=== PATIENT | female | born 1980 | race Caucasian/White ===

== ENCOUNTER 2017-07-25 17:34 | Emergency (ER) | payer SELFPAY ==
[~2017-07-25] VITALS: Ht 167.6 cm; Wt 122.5 kg
[~2017-07-25 17:34] MED LIST: AC500T PO; ACHYD1T PO; CEPH500C PO; DCS100C PO; HYDR28CR10 TP; IBP800T PO; PREN1TAB14 PO
--- OUTSIDE RECORDS SUMMARY | 2017-07-25 17:40 | XMS REPORT ---
Author Author JING QUINN [facility] Address [address] [place] [address] Care Team Providers Care Brand Designer Name Role Phone JING QUINN Unavailable PROBLEMS Type Condition ICD9-CM Code KFY57-ES Code Onset Dates Condition Status SNOMED Code Problem Tubal ligation sterilization status V26.51 Active 866324244 Problem Screening for malignant neoplasm of the cervix V76.2 Active 898158363 Problem Obesity, unspecified 278.00 Active 943097459 Problem Urinary tract infection, site not specified 599.0 Active 52712360 Problem Unspecified high-risk V23.9 Active 93707720 Problem Routine follow-up V24.2 Active 021228413 Problem Tobacco use disorder complicating , childbirth, or the puerperium, unspecified as to episode of care or not applicable 649.00 Active Problem Other malaise and fatigue 780.79 Active 655117457 ALLERGIES Substance Reaction Event Type Date Status N.K.D.A. Unknown Non Drug Allergy Oct, Unknown SOCIAL HISTORY No smoking Hx information available PLAN OF CARE VITAL SIGNS Height 68 in 2016-11-09 Weight 287.2 lbs 2016-11-09 Temperature 97.3 degrees Fahrenheit 2016-11-09 Heart Rate 76 bpm 2016-11-09 Respiratory Rate 18 2016-11-09 BMI 43.66 kg/m2 2016-11-09 Blood pressure systolic 128 mmHg 2016-11-09 Blood pressure diastolic 92 mmHg 2016-11-09 MEDICATIONS Medication Instructions Dosage Frequency Start Date End Date Duration Status Zofran 8 MG Orally 3 times a day 1 tablet 8h Oct, Active RESULTS No Results PROCEDURES Procedure Date Ordered Related Diagnosis Body Site Office Visit, Est Pt., Level 3 Nov 09, 2016 IMMUNIZATIONS No Known Immunizations
--- OUTSIDE RECORDS SUMMARY | 2017-07-25 17:40 | XMS REPORT ---
Author JING Marquez Organization [employer] Address Unknown Phone Unavailable Care Team Providers Care Machine Stoppage Frequency Checker Name Role Phone JING QUINN CP Unavailable Allergies No Known Allergies Problems Problem Type Condition Code Onset Dates Condition Status Problem Screening for malignant neoplasm of the cervix V76.2 Active Problem Tubal ligation sterilization status V26.51 Active Problem Routine follow-up V24.2 Active Problem Unspecified high-risk V23.9 Active Problem Tobacco use disorder complicating , childbirth, or the puerperium, unspecified as to episode of care or not applicable 649.00 Active Problem Urinary tract infection, site not specified 599.0 Active Problem Other malaise and fatigue 780.79 Active Problem Obesity, unspecified 278.00 Active Medications No Known Medications Results No Known Results Summary Purpose [employer] Submission
--- OUTSIDE RECORDS SUMMARY | 2017-07-25 17:40 | XMS REPORT ---
Author JING Marquez Organization [employer] Address Unknown Phone Unavailable Care Team Providers Care Construction Administrator Name Role Phone JING QUINN CP Unavailable [...] Active Problem Obesity, unspecified 278.00 Active Medications Medication Code System Code Instructions Start Date End Date Status Dosage Fluoxetine HCl [facility] [address]-11 20 mg Orally Once a day--MUST KEEP APPT FOR FURTHER REFILLS Jun 06, 2016 1 capsule in the morning Results No Known Results Summary Purpose [employer] Submission
--- OUTSIDE RECORDS SUMMARY | 2017-07-25 17:40 | XMS REPORT ---
Author Author JING QUINN [facility] Address [address] [place] [address] Care Team Providers Care Blower Operator Name Role Phone JING QUINN Unavailable PROBLEMS Type Condition ICD9-CM Code VBA48-YQ Code Onset Dates Condition Status SNOMED Code Assessment Mood disorder F39 May, Active 31782835 Problem Urinary tract infection, site not specified 599.0 Active 46792144 Problem Screening for malignant neoplasm of the cervix V76.2 Active 340606207 Problem Unspecified high-risk V23.9 Active 10570802 Problem Tubal ligation sterilization status V26.51 Active Problem Obesity, unspecified 278.00 Active 504263838 Problem Tobacco use disorder complicating , childbirth, or the puerperium, unspecified as to episode of care or not applicable 649.00 Active Problem Routine follow-up V24.2 Active 012671359 Problem Other malaise and fatigue 780.79 Active 220377399 ALLERGIES Substance Reaction Event Type Date Status N.K.D.A. Unknown Non Drug Allergy May, Unknown SOCIAL HISTORY No smoking Hx information available PLAN OF CARE VITAL SIGNS Height 68 in 2016-06-06 Weight 295.4 lbs 2016-06-06 Heart Rate 68 bpm 2016-06-06 Respiratory Rate 18 2016-06-06 BMI 44.91 kg/m2 2016-06-06 Blood pressure systolic 122 mmHg 2016-06-06 Blood pressure diastolic 88 mmHg 2016-06-06 MEDICATIONS Medication Instructions Dosage Frequency Start Date End Date Duration Status Fluoxetine HCl 20 mg Orally Once a day 1 capsule in the morning 24h May 30 day(s) Active RESULTS No Results PROCEDURES Procedure Date Ordered Related Diagnosis Body Site Office Visit, Est Pt., Level 3 Jun 06, 2016 IMMUNIZATIONS No Known Immunizations
--- OUTSIDE RECORDS SUMMARY | 2017-07-25 17:40 | XMS REPORT ---
Author JING Marquez Organization [employer] Address Unknown Phone Unavailable Care Team Providers Care Old Coin Dealer Name Role Phone JING QUINN CP Unavailable [...]
--- OUTSIDE RECORDS SUMMARY | 2017-07-25 17:41 | XMS REPORT | Continuity of Care Document ---
Author Author [facility] Address Unknown Phone Unavailable Allergies Medications Problems Date Dx Coded Attending Type Code Diagnosis Diagnosed By 05/19/2008 ANDREA MENDOZA DO 300.4 MO DYSTHYMIC DIS 05/19/2008 ANDREA MENDOZA DO 300.4 MO DYSTHYMIC DIS 05/19/2008 MADL BAGGAGE AGENT SUPERVISOR, JIM L 300.4 MO DYSTHYMIC DIS 05/19/2008 MADL BAGGAGE AGENT SUPERVISOR, JIM L 300.4 MO DYSTHYMIC DIS 11/05/2008 ANDREA MENDOZA DO V22.1 Normal Routine History And Physical - Labor And Delivery 11/05/2008 ANDREA MENDOZA DO V22.1 Normal Routine History And Physical - Labor And Delivery 11/05/2008 MADL BAGGAGE AGENT SUPERVISOR, JIM L V22.1 Normal Routine History And Physical - Labor And Delivery 11/05/2008 MADL BAGGAGE AGENT SUPERVISOR, JIM L V22.1 Normal Routine History And Physical - Labor And Delivery 12/04/2008 ANDREA MENDOZA DO 654.20 PREVIOUS 12/04/2008 ANDREA MENDOZA DO V72.31 Party Host Exam, Routine 12/04/2008 ANDREA MENDOZA DO V74.5 Std Screen 12/04/2008 ANDREA MENDOZA DO K 654.20 PREVIOUS 12/04/2008 ANDREA MENDOZA DO K V72.31 Party Host Exam, Routine 12/04/2008 ANDREA MENDOZA DO K V74.5 Std Screen 12/04/2008 MADL BAGGAGE AGENT SUPERVISOR, JIM L 654.20 PREVIOUS 12/04/2008 MADL BAGGAGE AGENT SUPERVISOR, JIM L V72.31 Party Host Exam, Routine 12/04/2008 MADL BAGGAGE AGENT SUPERVISOR, JIM L V74.5 Std Screen 12/04/2008 MADL BAGGAGE AGENT SUPERVISOR, JIM L 654.20 PREVIOUS 12/04/2008 MADL BAGGAGE AGENT SUPERVISOR, JIM L V72.31 Party Host Exam, Routine 12/04/2008 LB REDD APRNA L V74.5 Std Screen 01/01/2009 VERNON MENDOZA DOA K V28.8 SCREEN TETRA SCREEN 01/01/2009 MENDOZA DO ANDREA K V28.8 SCREEN TETRA SCREEN 01/01/2009 LB REDD APRNA L V28.8 SCREEN TETRA SCREEN 01/01/2009 MADL LB LAZCANOA L V28.8 SCREEN TETRA SCREEN 02/14/2009 KELLY ROSARIO ANDREA K 461.1 Sinusitis Acute Frontal 02/14/2009 MENDOZA DO ANDREA K 461.1 Sinusitis Acute Frontal 02/14/2009 MUNAL YUSUF LAZCANONYA L 461.1 Sinusitis Acute Frontal 02/14/2009 YUSUF REDD APRNNYA L 461.1 Sinusitis Acute Frontal 02/24/2009 VERNON MENDOZA DOA K 790.29 ABNORMAL GLUCOSE 02/24/2009 VERNON MENDOZA DOA K 790.29 ABNORMAL GLUCOSE 02/24/2009 MUNAL YUSUF LAZCANONYA L 790.29 ABNORMAL GLUCOSE 02/24/2009 MUNAL JALEESA, JIM L 790.29 ABNORMAL GLUCOSE 03/27/2009 VERNON MENDOZA DOA K 649.60 UTERINE SIZE DATE DISCREPANCY - LGA 03/27/2009 VERNON MENDOZA DOA K 649.60 Uterine Size Date Discrepancy - Lga 03/27/2009 MUNAL BAGGAGE AGENT SUPERVISOR, JIM L 649.60 Uterine Size Date Discrepancy - Lga 03/27/2009 MUNAL YUSUF LAZCANONYA L 649.60 Uterine Size Date Discrepancy - Lga 12/07/2009 VERNON MENDOZA DOA K 296.9 MOOD DIS NOS 12/07/2009 MENDOZA DO ANDREA K 296.9 MOOD DIS NOS 12/07/2009 MADL BAGGAGE AGENT SUPERVISORRENALDO PabloJIM L 296.9 MOOD DIS NOS 12/07/2009 MADL BAGGAGE AGENT SUPERVISORRENALDO PabloJIM L 296.9 MOOD DIS NOS 09/21/2010 VERNON MENDOZA DOA K 296.90 MOOD DISORDER 09/21/2010 VERNON MENDOZA DOA K 780.50 SLEEP DISTURBANCE, UNSPECIFIED 09/21/2010 VERNON MENDOZA DOA K 296.90 MOOD DISORDER 09/21/2010 MENDOZA DO, ANDREA K 780.50 SLEEP DISTURBANCE, UNSPECIFIED 09/21/2010 MADL BAGGAGE AGENT SUPERVISOR, JIM L 296.90 MOOD DISORDER 09/21/2010 MADL BAGGAGE AGENT SUPERVISOR, JIM L 780.50 SLEEP DISTURBANCE, UNSPECIFIED 09/21/2010 MADL BAGGAGE AGENT SUPERVISOR, JIM L 296.90 MOOD DISORDER 09/21/2010 MADL BAGGAGE AGENT SUPERVISOR, JIM L 780.50 SLEEP DISTURBANCE, UNSPECIFIED 07/28/2011 MENDOZA DO, ANDREA K 780.79 Malaise And Fatigue 07/28/2011 MENDOZA DO, ANDREA K 799.22 Irritibility 07/28/2011 MENDOZA DO, ANDREA K V04.81 FLU DX (3 YRS AND ABOVE, IM) 07/28/2011 MENDOZA DO, ANDREA K 780.79 Malaise And Fatigue 07/28/2011 MENDOZA DO, ANDREA K 799.22 Irritibility 07/28/2011 MENDOZA DO, ANDREA K V04.81 Flu Dx (3 Yrs And Above, Im) 07/28/2011 MADL BAGGAGE AGENT SUPERVISOR, JIM L 780.79 Malaise And Fatigue 07/28/2011 MADL BAGGAGE AGENT SUPERVISOR, JIM L 799.22 Irritibility 07/28/2011 MADL BAGGAGE AGENT SUPERVISOR, JIM L V04.81 Flu Dx (3 Yrs And Above, Im) 07/28/2011 MADL BAGGAGE AGENT SUPERVISOR, JIM L 780.79 Malaise And Fatigue 07/28/2011 MADL BAGGAGE AGENT SUPERVISOR, JIM L 799.22 Irritibility 07/28/2011 MADL BAGGAGE AGENT SUPERVISOR, JIM L V04.81 Flu Dx (3 Yrs And Above, Im) 03/13/2012 MENDOZA DO, ANDREA K 278.00 OBESITY 03/13/2012 MENDOZA DO, ANDREA K 649.00 COMPL OF - TOBACCO USE 03/13/2012 MENDOZA DO, ANDREA K 278.00 OBESITY 03/13/2012 MENDOZA DO, ANDREA K 649.00 Compl Of - Tobacco Use 03/13/2012 MADL BAGGAGE AGENT SUPERVISOR, JIM L 278.00 OBESITY 03/13/2012 MADL BAGGAGE AGENT SUPERVISOR, JIM L 649.00 Compl Of - Tobacco Use 03/13/2012 MADL BAGGAGE AGENT SUPERVISOR, JIM L 278.00 OBESITY 03/13/2012 MUNAL BAGGAGE AGENT SUPERVISOR, JIM L 649.00 Compl Of - Tobacco Use 03/28/2012 ANDREA MENDOZA DO K V76.2 Cervical Cancer Screening (pap Smear) 03/28/2012 ANDREA MENDOZA DO K V76.2 Cervical Cancer Screening (pap Smear) 03/28/2012 MUNAL BAGGAGE AGENT SUPERVISOR, JIM L V76.2 Cervical Cancer Screening (pap Smear) 03/28/2012 MADL BAGGAGE AGENT SUPERVISOR, JIM L V76.2 Cervical Cancer Screening (pap Smear) 05/31/2012 ANDREA MENDOZA DO K V23.9 , HIGH-RISK (UNSPEC) 05/31/2012 ANDREA MENDOZA DO K V23.9 , High-risk (unspec) 05/31/2012 MUNAL BAGGAGE AGENT SUPERVISORLB PabloA L V23.9 , High-risk (unspec) 05/31/2012 MUNAL BAGGAGE AGENT SUPERVISORLB PabloA L V23.9 , High-risk (unspec) 07/26/2012 ANDREA MENDOZA DO K 599.0 Urinary Tract Infection 07/26/2012 ANDREA MENDOZA DO K 599.0 Urinary Tract Infection 07/26/2012 MUNAL BAGGAGE AGENT SUPERVISORJIM Pablo L 599.0 Urinary Tract Infection 07/26/2012 MUNAL BAGGAGE AGENT SUPERVISOR, JIM L 599.0 Urinary Tract Infection 11/05/2012 ANDREA MENDOZA DO K V24.2 F/U, ROUTINE 11/05/2012 ANDREA MENDOZA DO K V26.51 TUBAL LIGATION STATUS 11/05/2012 MADL BAGGAGE AGENT SUPERVISOR, IJM L V24.2 F/U, ROUTINE 11/05/2012 MADL BAGGAGE AGENT SUPERVISOR, JIM L V26.51 TUBAL LIGATION STATUS 11/05/2012 MADL BAGGAGE AGENT SUPERVISOR, JIM L V24.2 F/U, ROUTINE 11/05/2012 MUNAL BAGGAGE AGENT SUPERVISOR, JIM L V26.51 TUBAL LIGATION STATUS 07/10/2014 MUNAL BAGGAGE AGENT SUPERVISORLB PabloA L 780.79 OTHER MALAISE AND FATIGUE 07/10/2014 MUNAL BAGGAGE AGENT SUPERVISORJIM Pablo L 780.79 OTHER MALAISE AND FATIGUE Procedures Code [place] [address] UA OB DIP 2011 04308 CULTURE GROUP B STREP VAG 09/12/2012 85008 UA OB DIP 2011 03350 ROUTINE VENIPUNCTURE 08/26/2014 48994 CBC 08/26/2014 [id number] GFR CALC (RESULT ONLY) 08/26/2014 47419 CMP 08/26/2014 58862 LIPID PANEL 08/26 32365 TSH 08/26/2014 Results Encounters ACCT No. Visit Date/Time Discharge Status Pt. Type Provider Facility Loc./Unit Complaint [id number] 08/26/2014 08:52:00 08/26/2014 23: 59:59 CLS Outpatient JIM REDD APRN [id number] 07/10/2014 08:14:00 07/10/2014 23: 59:59 CLS Outpatient JIM REDD APRN [id number] 11/05/2012 14:39:00 11/05/2012 23: 59:59 CLS Outpatient ANDREA MENDOZA DO [id number] 09/05/2012 09:38:00 09/05/2012 23:59 :59 CLS Outpatient ANDREA MENDOZA DO
--- OUTSIDE RECORDS SUMMARY | 2017-07-25 17:41 | XMS REPORT ---
Author Author JING QUINN [facility] Address [address] [place] [address] Care Team Providers Care Job Setter Honing Name Role Phone JING QUINN Unavailable PROBLEMS Type Condition ICD9-CM Code XBX85-WW Code Onset Dates Condition Status SNOMED Code Assessment Fatigue, unspecified type R53.83 Jun, Active 64725345 Problem Urinary tract infection, site not specified 599.0 Active 12452222 Problem Screening for malignant neoplasm of the cervix V76.2 Active 295508882 Assessment Mood disorder F39 Jun, Active 96301654 Problem Unspecified high-risk V23.9 Active 26904910 Problem Tubal ligation sterilization status V26.51 Active Problem Obesity, unspecified 278.00 Active 141665283 Problem Tobacco use disorder complicating , childbirth, or the puerperium, unspecified as to episode of care or not applicable 649.00 Active Problem Routine follow-up V24.2 Active 297177775 Problem Other malaise and fatigue 780.79 Active 335164106 ALLERGIES Substance Reaction Event Type Date Status N.K.D.A. Unknown Non Drug Allergy Jun, Unknown SOCIAL HISTORY No smoking Hx information available PLAN OF CARE VITAL SIGNS Height 68 in 2016-07-25 Weight 290.3 lbs 2016-07-25 Heart Rate 80 bpm 2016-07-25 Respiratory Rate 16 2016-07-25 BMI 44.14 kg/m2 2016-07-25 Blood pressure systolic 124 mmHg 2016-07-25 Blood pressure diastolic 80 mmHg 2016-07-25 MEDICATIONS Medication Instructions Dosage Frequency Start Date End Date Duration Status Fluoxetine HCl 40 MG Orally Once a day 1 capsule in the morning 24h May Active RESULTS Name Result Date Reference Range TSH 2016-07-25 TSH 2.010 0.450-4.500 CMP 2016-07-25 Glucose, Serum 96 65-99 BUN 12 6-20 Creatinine, Serum 0.79 0.57-1.00 eGFR If NonAfricn Am 99 >59 eGFR If Africn Am 114 >59 BUN/Creatinine Ratio 15 8-20 Sodium, Serum 141 134-144 Potassium, Serum 3.8 3.5-5.2 Chloride, Serum 101 97-108 Carbon Dioxide, Total 25 18-29 Calcium, Serum 9.1 8.7-10.2 Protein, Total, Serum 6.9 6.0-8.5 Albumin, Serum 4.3 3.5-5.5 Globulin, Total 2.6 1.5-4.5 A/G Ratio 1.7 1.1-2.5 Bilirubin, Total 0.2 0.0-1.2 Alkaline Phosphatase, S 62 39-117 AST (SGOT) 20 0-40 ALT (SGPT) 16 0-32 CBC 2016-07-25 WBC 12.0 3.4-10.8 RBC 4.13 3.77-5.28 Hemoglobin 11.7 11.1-15.9 Hematocrit 35.3 34.0-46.6 MCV 86 79-97 MCH 28.3 26.6-33.0 MCHC 33.1 31.5-35.7 RDW 14.1 12.3-15.4 Platelets 401 150-379 Neutrophils 54 Lymphs 37 Monocytes 8 Eos 1 Basos 0 Neutrophils (Absolute) 6.4 1.4-7.0 Lymphs (Absolute) 4.5 0.7-3.1 Monocytes(Absolute) 0.9 0.1-0.9 Eos (Absolute) 0.1 0.0-0.4 Baso (Absolute) 0.0 0.0-0.2 Immature Granulocytes 0 Immature Grans (Abs) 0.0 0.0-0.1 PROCEDURES Procedure Date Ordered Related Diagnosis Body Site Office Visit, Est Pt., Level 3 Jul 25, 2016 ASSAY THYROID STIM HORMONE Jul 25, 2016 COMPREHEN METABOLIC PANEL Jul 25, 2016 COMPLETE CBC W/AUTO DIFF WBC Jul 25, 2016 VENIPUNCT, ROUTINE* Jul 25, 2016 IMMUNIZATIONS No Known Immunizations
[2017-07-25] MEDS ORDERED: AMOX500C2 PO (18:53)
[2017-07-25] MEDS ORDERED: HYDR-757 PO (18:53)
--- NOTE | 2017-07-25 18:54 | ED EENT ---
History of Present Illness General Chief Complaint: Facial Problems Stated Complaint: FEVER,FACE SWELLING Source: patient Exam Limitations: no limitations History of Present Illness Time seen by provider: 18:49 Initial Comments To ER with reports of 1.5 days of left upper dental pain,, subjective swelling, subjective fever. She denies any injuries or trauma to the mouth Timing/Duration: yesterday Severity: moderate Associated Symptoms: tooth pain Allergies and Home Medications Allergies Coded Allergies: No Known Drug Allergies (Verified Allergy, Unknown, 02/03/09) Home Medications Docusate Sodium 100 Mg Capsule, 100 MG PO BID, (Reported) Hydrocodone Bit/Acetaminophen 1 Tab Tablet, 1-2 TAB PO Q 3HRS PRN, (Reported) Hydrocortisone/Oatmeal/Aloe/E 28.4 Gm Cream.gm., TP BID, (Reported) Apply sparingly to affected area twice a day Ibuprofen 800 Mg Tab, 800 MG PO Q6H PRN, (Reported) Vits W-Ca,Fe,Fa(<1MG) 1 Each Tablet, 1 EACH PO DAILY, (Reported) Review of Systems Constitutional: see HPI Eyes: No Symptoms Reported Ears: No Symptoms Reported Nose: no symptoms reported Mouth: see HPI, pain, swelling Throat: no symptoms reported Respiratory: no symptoms reported Cardiovascular: no symptoms reported Musculoskeletal: no symptoms reported Past Wpsxopl-Csjurm-Aejflj Hx Patient Social History Recent Foreign Travel: No Contact w/Someone Who Travel: No Immunizations Up To Date Date of Influenza Vaccine: Sep 07, 2012 Reproductive System Hx Reproductive Disorders: No Physical Exam General Appearance: WD/WN, no apparent distress Eyes: bilateral eye normal inspection, bilateral eye PERRL, bilateral eye EOMI Ears: bilateral ear auricle normal, bilateral ear canal normal, bilateral ear TM normal Mouth/Throat: dental tenderness (surrounding the left upper molar. However, there is no fluctuance to suggest a drainable abscess.) Neurologic/Psychiatric: alert, normal mood/affect, oriented x 3 Skin: normal color, warm/dry Departure Impression Impression: Primary Impression: Pain, dental Disposition: 01 HOME, SELF-CARE Condition: Stable Departure-Patient Inst. Decision time for Depature: 18:52 Referrals: ANDREA MENDOZA DO (PCP) Primary Care Physician JING QUINN (Family) Primary Care Physician JHOAN STERLING DDS Patient Instructions: NO INSTRUCTIONS GIVEN Add. Discharge Instructions: 1. Take antibiotics and pain medication as directed 2. Call Dr. Sterling tomorrow to make an appointment to be seen 3. All discharge instructions reviewed with patient and/or family. Voiced understanding. Scripts Hydrocodone/Acetaminophen ([place] 5-325 Tablet) 1 Each Tablet 1 EACH PO Q4H Y for PAIN-MILD TO MODERATE, #10 TAB Do not fill unless amoxicillin is also filled Prov: MYLES CONTRERAS APRN 07/25/17 Amoxicillin (Amoxicillin) 500 Mg Capsule 500 MG PO TID, #21 CAP Prov: MYLES CONTRERAS APRN 07/25/17 Work/School Note: Work Release Form Date Seen in the Emergency Department: Jul 25, 2017 Return to Work: Jul 26, 2017 MYLES CONTRERAS APRN Jul 25, 2017 18:53
[2017-07-25 19:00] VITALS: BP 120/70
== END 2017-07-25 19:00 | disposition home or self-care (01) ==
LOC: EDUNIT# 17:34 → ER 17:37
DX: K08.89 Other specified disorders of teeth and supporting structures (principal)
CPT/HCPCS: 99283

== ENCOUNTER 2018-07-01 13:49 | Emergency (ER) | payer SELFPAY ==
[~2018-07-01] VITALS: Ht 175.3 cm; Wt 133.4 kg
[~2018-07-01 13:49] MED LIST changes: +AMOX500C2 PO; +HYDR-4226 PO
--- OUTSIDE RECORDS SUMMARY | 2018-07-01 14:16 | XMS REPORT ---
Author Author JING QUINN Organization [facility] Address [address] [place] [address] Care Team Providers Care Final Inspector Movement Assembly Name Role Phone JING QUINN Unavailable PROBLEMS Type Condition ICD9-CM Code PEF35-BA Code Onset Dates Condition Status SNOMED Code Problem Morbid obesity due to excess calories E66.01 Active 648561399 Problem Chronic fatigue R53.82 Active [id number] ALLERGIES No Known Allergies ENCOUNTERS Encounter Location Date Diagnosis [facility] [id number] [place] [address] Jan, Morbid obesity due to excess calories E66.01 ; Chronic fatigue R53.82 ; Family history of diabetes mellitus Z83.3 and Family history of hypothyroidism Z83.49 [facility] [id number] [place] [address] Oct, Viral gastroenteritis A08.4 [facility] [address] [address] Jun, [facility] [id number] [place] [address] Jun, Fatigue, unspecified type R53.83 and Mood disorder F39 [facility] [id number] [place] [address] May, [facility] [id number] [place] [address] May, [facility] [address] [address] May, Mood disorder F39 [facility] [id number] [place] [address] Jan, [facility] [id number] [address] 13 Jan, 2015 [facility] [address] [id number] [place] [address] Jul, [facility] [place] [facility] [address] [id number] [place] [address] Jul, [facility] [place] [facility] [address] [id number] [place] [address] Jul, [facility] [place] [facility] [address] [id number] [place] [address] Jul, [facility] [place] [facility] [address] [id number] [place] [address] Jun, [facility] [place] [facility] [address] [id number] [place] [address] Jun, [facility] [address] [id number] [place] [address] Oct, [facility] [address] [id number] [place] [address] Oct, [facility] [place] [facility] [address] [id number] [place] [address] 27 Aug, 2012 [facility] [address] [id number] [place] [address] Aug, [facility] [place] [facility] [address] [id number] [place] [address] 21 Aug, 2012 [facility] [place] [facility] [address] [id number] [place] [address] 15 Aug, 2012 [facility] [place] [facility] [address] [id number] [place] [address]- [address] 15 Aug, 2012 [facility] [place] [facility] [address] [id number] [place] [address]- [address] 14 Aug, 2012 [facility] [place] [facility] [address] [id number] [place] [address] 13 Aug, 2012 [facility] [place] [facility] [address] [id number] [place] [address] Aug, [facility] [place] [facility] [address] [id number] [place] [address] Aug, [facility] [place] [facility] [address] [id number] [place] [address] Aug, [facility] [place] [facility] [address] [id number] [place] [address] Aug, [facility] [place] [facility] [address] [id number] [place] [address] Jul, [facility] [place] [facility] [address] [id number] [place] [address] Jul, [facility] [place] [facility] [address] [id number] [place] [address] 4099 Jul, [facility] [place] [facility] [address] [id number] [place] [address] Jul, [facility] [place] [facility] [address] [id number] [place] [address] Jul, [facility] [place] [facility] [address] [id number] [place] [address] 88[address] Jul, [facility] [place] [facility] [address] [facility] [id number] [place] [address] Jul, [facility] [place] [facility] [address] [id number], [place] [address] Jun, [facility] [place] [facility] [address] [id number] [place] [address] 24 Jun, 2012 [facility] [place] [facility] [address] [id number], [place] [address] Jun, [facility] [place] [facility] [address] [id number], [place] [address] May, [facility] [place] [facility] [address] [id number], [place] [address] May, [facility] [address] [place] [address] Apr, [facility] [address], [place] [address] Mar, [facility] [address], [place] [address] Mar, [facility] [address], [place] [address] February, [facility] [address], [place] [address] February, [facility] [address], [place] [address] February, [facility] [address], [place] [address] February, [facility] [address], [place] [address] Aug, [facility] [address], [place] [address] Apr, [facility] [address], [place] [address] Mar, [facility] [id number], [place] [address] February, [facility] [id number], [place] [address] Jan, IMMUNIZATIONS No Known Immunizations SOCIAL HISTORY Never Assessed REASON FOR VISIT Depression----Bret PLAN OF CARE Activity Details Follow Up 4 Weeks Reason:obesity VITAL SIGNS Height 68 in 2018-02-05 Weight 304 lbs 2018-02-05 Temperature 98.1 degrees Fahrenheit 2018-02-05 Heart Rate 100 bpm 2018-02-05 Respiratory Rate 20 2018-02-05 BMI 46.22 kg/m2 2018-02-05 Blood pressure systolic 132 mmHg 2018-02-05 Blood pressure diastolic 70 mmHg 2018-02-05 MEDICATIONS Medication Instructions Dosage Frequency Start Date End Date Duration Status Phentermine HCl 15 mg Orally Once a day 1 capsule 24h Jan, Active Fluoxetine HCl 40 mg Orally Once a day 1 capsule in the morning 24h May Active RESULTS No Results PROCEDURES No Known procedures INSTRUCTIONS MEDICATIONS ADMINISTERED No Known Medications MEDICAL (GENERAL) HISTORY Type Description Date Medical History Depression, unspecified depression type Surgical History section x 4 Surgical History tonsillectomy Surgical History tubal ligation Hospitalization History attempted suicide
--- OUTSIDE RECORDS SUMMARY | 2018-07-01 14:16 | XMS REPORT | Continuity of Care Document ---
Author Author [facility] Address Unknown Phone Unavailable Allergies Active Description Code Type Severity Reaction Onset Reported/Identified Relationship to Patient Clinical Status Yes No Known Drug Allergies [id number] Drug Allergy Unknown N/A 02/03/2009 Medications There is no data. Problems Date Dx Coded Attending Type Code Diagnosis Diagnosed By 05/19/2008 ANDREA MENDOZA DO 300.4 MO DYSTHYMIC DIS 05/19/2008 ANDREA MENDOZA DO 300.4 MO DYSTHYMIC DIS 05/19/2008 MADL JEWELRY DEPARTMENT SUPERVISORJIM Pablo 300.4 MO DYSTHYMIC DIS 05/19/2008 MADL JIM LAZCANO 300.4 MO DYSTHYMIC DIS 11/05/2008 ANDREA MENDOZA DO V22.1 Normal Routine History And Physical - Labor And Delivery 11/05/2008 ANDREA MENDOZA DO V22.1 Normal Routine History And Physical - Labor And Delivery 11/05/2008 MADL JEWELRY DEPARTMENT SUPERVISORJIM Pablo V22.1 Normal Routine History And Physical - Labor And Delivery 11/05/2008 MUNAL JIM LAZCANO V22.1 Normal Routine History And Physical - Labor And Delivery 12/04/2008 ANDREA MENDOZA DO 654.20 PREVIOUS 12/04/2008 ANDREA MENDOZA DO V72.31 Metal Slitter Exam, Routine 12/04/2008 ANDREA MENDOZA DO V74.5 Std Screen 12/04/2008 ANDREA MENDOZA DO K 654.20 PREVIOUS 12/04/2008 ANDREA MENDOZA DO V72.31 Metal Slitter Exam, Routine 12/04/2008 ANDREA MENDOZA DO V74.5 Std Screen 12/04/2008 MADL JEWELRY DEPARTMENT SUPERVISORJIM Pablo 654.20 PREVIOUS 12/04/2008 MADL JIM LAZCANO V72.31 Metal Slitter Exam, Routine 12/04/2008 MADL JEWELRY DEPARTMENT SUPERVISORJIM Pablo V74.5 Std Screen 12/04/2008 JIM REDD APRN L 654.20 PREVIOUS 12/04/2008 JIM REDD APRN L V72.31 Metal Slitter Exam, Routine 12/04/2008 JIM REDD APRN L V74.5 Std Screen 01/01/2009 VERNON MENDOZA DOA K V28.8 SCREEN TETRA SCREEN 01/01/2009 MENDOZA DO ANDREA K V28.8 SCREEN TETRA SCREEN 01/01/2009 LB REDD APRNA L V28.8 SCREEN TETRA SCREEN 01/01/2009 LB REDD APRNA L V28.8 SCREEN TETRA SCREEN 02/14/2009 VERNON MENDOZA DOA K 461.1 Sinusitis Acute Frontal 02/14/2009 VERNON MENDOZA DOA K 461.1 Sinusitis Acute Frontal 02/14/2009 RENALDO REDD APRNWNYA L 461.1 Sinusitis Acute Frontal 02/14/2009 RENALDO REDD APRNWNYA L 461.1 Sinusitis Acute Frontal 02/24/2009 VERNON MENDOZA DOA K 790.29 ABNORMAL GLUCOSE 02/24/2009 VERNON MENDOZA DOA K 790.29 ABNORMAL GLUCOSE 02/24/2009 RENALDO REDD APRNWNYA L 790.29 ABNORMAL GLUCOSE 02/24/2009 RENALDO REDD APRNWNYA L 790.29 ABNORMAL GLUCOSE 03/27/2009 ANDREA MENDOZA DO K 649.60 UTERINE SIZE DATE DISCREPANCY - LGA 03/27/2009 VERNON MENDOZA DOA K 649.60 Uterine Size Date Discrepancy - Lga 03/27/2009 MUNAL JALEESA JIM L 649.60 Uterine Size Date Discrepancy - Lga 03/27/2009 MUNAL JALEESA JIM L 649.60 Uterine Size Date Discrepancy - Lga 12/07/2009 ANDREA MENDOZA DO K 296.9 MOOD DIS NOS 12/07/2009 ANDREA MENDOZA DO K 296.9 MOOD DIS NOS 12/07/2009 MUNAL JEWELRY DEPARTMENT SUPERVISORLB PabloA L 296.9 MOOD DIS NOS 12/07/2009 MUNAL JIM LAZCANO L 296.9 MOOD DIS NOS 09/21/2010 MENDOZA DO, ANDREA K 296.90 MOOD DISORDER 09/21/2010 MENDOZA DO, ANDREA K 780.50 SLEEP DISTURBANCE, UNSPECIFIED 09/21/2010 MENDOZA DO, ANDREA K 296.90 MOOD DISORDER 09/21/2010 MENDOZA DO, ANDREA K 780.50 SLEEP DISTURBANCE, UNSPECIFIED 09/21/2010 MADL JEWELRY DEPARTMENT SUPERVISOR, JIM L 296.90 MOOD DISORDER 09/21/2010 MADL JEWELRY DEPARTMENT SUPERVISOR, JIM L 780.50 SLEEP DISTURBANCE, UNSPECIFIED 09/21/2010 MADL JEWELRY DEPARTMENT SUPERVISOR, JIM L 296.90 MOOD DISORDER 09/21/2010 MADL JEWELRY DEPARTMENT SUPERVISOR, JIM L 780.50 SLEEP DISTURBANCE, UNSPECIFIED [...] (3 Yrs And Above, Im) 07/28/2011 MADL JEWELRY DEPARTMENT SUPERVISOR, JIM L 780.79 Malaise And Fatigue 07/28/2011 MADL JEWELRY DEPARTMENT SUPERVISOR, JIM L 799.22 Irritibility 07/28/2011 MADL JEWELRY DEPARTMENT SUPERVISOR, JIM L V04.81 Flu Dx (3 Yrs And Above, Im) 07/28/2011 MADL JEWELRY DEPARTMENT SUPERVISOR, JIM L 780.79 Malaise And Fatigue 07/28/2011 MADL JEWELRY DEPARTMENT SUPERVISOR, JIM L 799.22 Irritibility 07/28/2011 MADL JEWELRY DEPARTMENT SUPERVISOR, JIM L V04.81 Flu Dx (3 Yrs And Above, Im) 03/13/2012 MENDOZA DO, ANDREA K 278.00 OBESITY 03/13/2012 MENDOZA DO, ANDREA K 649.00 COMPL OF - TOBACCO USE 03/13/2012 MENDOZA DO, ANDREA K 278.00 OBESITY 03/13/2012 MENDOZA DO, ANDREA K 649.00 Compl Of - Tobacco Use 03/13/2012 MADL JEWELRY DEPARTMENT SUPERVISOR, JIM L 278.00 OBESITY 03/13/2012 JIM REDD APRN L 649.00 Compl Of - Tobacco Use 03/13/2012 JIM REDD APRN L 278.00 OBESITY 03/13/2012 JIM REDD APRN L 649.00 Compl Of - Tobacco Use 03/28/2012 MENDOZA ANDREA ROSARIO V76.2 Cervical Cancer Screening (pap Smear) 03/28/2012 MENDOZA ANDREA ROSARIO K V76.2 Cervical Cancer Screening (pap Smear) 03/28/2012 JIM REDD APRN L V76.2 Cervical Cancer Screening (pap Smear) 03/28/2012 JMI REDD APRN L V76.2 Cervical Cancer Screening (pap Smear) 05/31/2012 ANDREA MENDOZA DO K V23.9 , HIGH-RISK (UNSPEC) 05/31/2012 ANDREA MENDOZA DO K V23.9 , High-risk (unspec) 05/31/2012 JIM REDD APRN L V23.9 , High-risk (unspec) 05/31/2012 JIM REDD APRN L V23.9 , High-risk (unspec) 07/26/2012 ANDREA MENDOZA DO K 599.0 Urinary Tract Infection 07/26/2012 KELLY ANDREA ROSARIO K 599.0 Urinary Tract Infection 07/26/2012 JIM REDD APRN L 599.0 Urinary Tract Infection 07/26/2012 JIM RDED APRN L 599.0 Urinary Tract Infection 09/22/2012 Ot 644.03 THRT RADHA LABOR-ANTEPART 10/01/2012 Ot 278.00 OBESITY, NOS 10/01/2012 Ot 649.11 OBESITY COMP PREG/CHILDBIRTH/PUERPERIUM, 10/01/2012 Ot 654.21 PREV DELIVRY W/ OR W/O MENT ANT 10/01/2012 Ot 674.82 PUERP COMP NEC-DEL W P/P 10/01/2012 Ot 692.89 DERMATITIS NEC 10/01/2012 Ot V06.1 DIPHTHERIA- TETANUS-PERTUSSIS, COMBINED [ 10/01/2012 Ot V27.0 DELIVER- SINGLE LIVEBORN 10/01/2012 Ot V85.41 BODY MASS INDEX 40.0-44.9, ADULT 11/05/2012 MENDOZA DO, ANDREA K V24.2 F/U, ROUTINE 11/05/2012 MENDOZA DO, ANDREA K V26.51 TUBAL LIGATION STATUS 11/05/2012 MADL JEWELRY DEPARTMENT SUPERVISOR, JIM L V24.2 F/U, ROUTINE 11/05/2012 MADL JEWELRY DEPARTMENT SUPERVISOR, JIM L V26.51 TUBAL LIGATION STATUS 11/05/2012 MADL JEWELRY DEPARTMENT SUPERVISOR, JIM L V24.2 F/U, ROUTINE 11/05/2012 MADL JEWELRY DEPARTMENT SUPERVISOR, JIM L V26.51 TUBAL LIGATION STATUS 07/10/2014 MADL JEWELRY DEPARTMENT SUPERVISOR, JIM L 780.79 OTHER MALAISE AND FATIGUE 07/10/2014 MADL JEWELRY DEPARTMENT SUPERVISOR, JIM L 780.79 OTHER MALAISE AND FATIGUE 07/25/2017 Ot 649.03 TOBACCO USE DISOR COMP PREG/CHILDBIRTH/P 07/25/2017 Ot 654.23 PREV DELIVERY, ANTEPARTUM COND 07/25/2017 Ot 278.00 OBESITY, NOS 07/25/2017 Ot 649.03 TOBACCO USE DISOR COMP PREG/CHILDBIRTH/P 07/25/2017 Ot 649.13 OBESITY COMP PREG/CHILDBIRTH/PUERPERIUM, 07/25/2017 Ot 649.63 UTERINE SIZE DATE DISCREPANCY, ANTEPARTU 07/25/2017 Ot V23.89 SUPRV OTH HIGH-RISK 07/25/2017 Ot V28.81 ENCOUNTER FOR ANATOMIC SURVEY 07/25/2017 Ot 649.63 UTERINE SIZE DATE DISCREPANCY, ANTEPARTU 07/25/2017 Ot 648.83 ABN GLUCOSE- ANTEPARTUM 07/25/2017 Ot 285.9 ANEMIA NOS 07/25/2017 Ot 648.23 ANEMIA- ANTEPARTUM 07/25/2017 Ot 654.23 PREV DELIVERY, ANTEPARTUM COND 07/25/2017 Ot V72.63 PRE- PROCEDURAL LABORATORY EXAMINATION 07/25/2017 MYLES CONTRERAS JEWELRY DEPARTMENT SUPERVISOR Ot K08.89 OTHER SPECIFIED DISORDERS OF TEETH AND S 07/25/2017 Ot 649.03 TOBACCO USE DISOR COMP PREG/CHILDBIRTH/P 07/25/2017 Ot 654.23 PREV DELIVERY, ANTEPARTUM COND 07/25/2017 Ot 278.00 OBESITY, NOS 07/25/2017 Ot 649.03 TOBACCO USE DISOR COMP PREG/CHILDBIRTH/P 07/25/2017 Ot 649.13 OBESITY COMP PREG/CHILDBIRTH/PUERPERIUM, 07/25/2017 Ot 649.63 UTERINE SIZE DATE DISCREPANCY, ANTEPARTU 07/25/2017 Ot V23.89 SUPRV OTH HIGH-RISK 07/25/2017 Ot V28.81 ENCOUNTER FOR ANATOMIC SURVEY 07/25/2017 Ot 649.63 UTERINE SIZE DATE DISCREPANCY, ANTEPARTU 07/25/2017 Ot 648.83 ABN GLUCOSE- ANTEPARTUM 07/25/2017 Ot 285.9 ANEMIA NOS 07/25/2017 Ot 648.23 ANEMIA- ANTEPARTUM 07/25/2017 Ot 654.23 PREV DELIVERY, ANTEPARTUM COND 07/25/2017 Ot V72.63 PRE- PROCEDURAL LABORATORY EXAMINATION 10/05/2017 Ot V28.89 10/05/2017 Ot 649.63 10/05/2017 Ot 790.22 10/05/2017 Ot 649.63 10/05/2017 Ot 790.29 10/05/2017 Ot 654.23 10/05/2017 Ot V72.83 10/05/2017 Ot V74.8 10/05/2017 Ot 649.03 TOBACCO USE DISOR COMP PREG/CHILDBIRTH/P 10/05/2017 Ot 654.23 PREV DELIVERY, ANTEPARTUM COND 10/05/2017 Ot 278.00 OBESITY, NOS 10/05/2017 Ot 649.03 TOBACCO USE DISOR COMP PREG/CHILDBIRTH/P 10/05/2017 Ot 649.13 OBESITY COMP PREG/CHILDBIRTH/PUERPERIUM, 10/05/2017 Ot 649.63 UTERINE SIZE DATE DISCREPANCY, ANTEPARTU 10/05/2017 Ot V23.89 SUPRV OTH HIGH-RISK 10/05/2017 Ot V28.81 ENCOUNTER FOR ANATOMIC SURVEY 10/05/2017 Ot 649.63 UTERINE SIZE DATE DISCREPANCY, ANTEPARTU 10/05/2017 Ot 648.83 ABN GLUCOSE- ANTEPARTUM 10/05/2017 Ot 285.9 ANEMIA NOS 10/05/2017 Ot 648.23 ANEMIA- ANTEPARTUM 10/05/2017 Ot 654.23 PREV DELIVERY, ANTEPARTUM COND 10/05/2017 Ot V72.63 PRE- PROCEDURAL LABORATORY EXAMINATION 10/05/2017 Ot 285.9 ANEMIA NOS 10/05/2017 Ot 648.23 ANEMIA- ANTEPARTUM 10/05/2017 Ot 654.23 PREV DELIVERY, ANTEPARTUM COND 10/05/2017 Ot V72.63 PRE- PROCEDURAL LABORATORY EXAMINATION Procedures Code Description Performed By Performed On 74.1 LOW CERVICAL 05/12/2009 35376 UA OB DIP 09/10/2012 46994 CULTURE GROUP B STREP VAG 09/12/2012 85527 UA OB DIP 09/19/2012 74.1 LOW CERVICAL 09/29/2012 10830 ROUTINE VENIPUNCTURE 08/26/2014 24963 CBC 08/26/2014 [id number] GFR CALC (RESULT ONLY) 08/26/2014 76690 CMP 08/26/2014 59268 LIPID PANEL 08/26/2014 38078 TSH 08/26/2014 Results Test Result Range CBC With Differential/Platelet - 07/25/16 16:31 WBC 12.0 x10E3/uL 3.4-10.8 RBC 4.13 x10E6/uL 3.77-5.28 Hemoglobin 11.7 g/dL 11.1-15.9 Hematocrit 35.3 % 34.0-46.6 MCV 86 fL 79-97 MCH 28.3 pg 26.6-33.0 MCHC 33.1 g/dL 31.5-35.7 RDW 14.1 % 12.3-15.4 Platelets 401 x10E3/uL 150-379 Neutrophils 54 % Lymphs 37 % Monocytes 8 % Eos 1 % Basos 0 % Neutrophils (Absolute) 6.4 x10E3/uL 1.4-7.0 Lymphs (Absolute) 4.5 x10E3/uL 0.7-3.1 Monocytes(Absolute) 0.9 x10E3/uL 0.1-0.9 Eos (Absolute) 0.1 x10E3/uL 0.0-0.4 Baso (Absolute) 0.0 x10E3/uL 0.0-0.2 Immature Granulocytes 0 % Immature Grans (Abs) 0.0 x10E3/uL 0.0-0.1 Comp. Metabolic Panel (14) - 07/25/16 16:31 Glucose, Serum 96 mg/dL 65-99 BUN 12 mg/dL 6-20 Creatinine, Serum 0.79 mg/dL 0.57-1.00 eGFR If NonAfricn Am 99 mL/min/1.73 >59 eGFR If Africn Am 114 mL/min/1.73 >59 BUN/Creatinine Ratio 15 8-20 Sodium, Serum 141 mmol/L 134-144 Potassium, Serum 3.8 mmol/L 3.5-5.2 Chloride, Serum 101 mmol/L 97-108 Carbon Dioxide, Total 25 mmol/L 18-29 Calcium, Serum 9.1 mg/dL 8.7-10.2 Protein, Total, Serum 6.9 g/dL 6.0-8.5 Albumin, Serum 4.3 g/dL 3.5-5.5 Globulin, Total 2.6 g/dL 1.5-4.5 A/G Ratio 1.7 1.1-2.5 Bilirubin, Total 0.2 mg/dL 0.0-1.2 Alkaline Phosphatase, S 62 IU/L 39-117 AST (SGOT) 20 IU/L 0-40 ALT (SGPT) 16 IU/L 0-32 TSH - 07/25/16 16:31 TSH 2.010 uIU/mL 0.450-4.500 Encounters ACCT No. Visit Date/Time Discharge Status Pt. Type Provider Facility Loc./Unit Complaint [id number] 08/26/2014 08:52:00 08/26/2014 23:59:59 CLS Outpatient JIM REDD APRN [id number] 07/10/2014 08:14:00 07/10/2014 23:59:59 CLS Outpatient JIM REDD APRN [id number] 11/05/2012 14:39:00 11/05/2012 23:59:59 CLS Outpatient ANDREA MENDOZA DO [id number] 09/05/2012 09:38:00 09/05/2012 23:59:59 CLS Outpatient ANDREA MENDOZA DO [id number] 07/26/2016 10:06:00 Document Registration [id number] 07/25/2017 17:37:00 07/25/2017 19:00:00 DIS Emergency MYLES CONTRERAS JEWELRY DEPARTMENT SUPERVISOR [facility] ER FEVER,FACE SWELLING [id number] 10/05/2017 03:13:00 Document Registration [id number] 10/05/2017 03:13:00 Document Registration [id number] 10/05/2017 03:13:00 Document Registration [id number] 10/05/2017 03:13:00 Document Registration [id number] 09/28/2012 06:04:00 Document Registration [id number] 09/25/2012 14:15:00 Document Registration [id number] 09/22/2012 18:13:00 Document Registration [id number] 08/24/2012 08:22:00 Document Registration [id number] 08/01/2012 09:53:00 Document Registration [id number] 07/16/2012 10:08:00 Document Registration [id number] 05/17/2012 10:04:00 Document Registration [id number] 03/15/2012 10:54:00 Document Registration [id number] 05/12/2009 05:47:00 Document Registration [id number] 05/08/2009 09:05:00 Document Registration [id number] 03/30/2009 12:52:00 Document Registration [id number] 02/26/2009 08:38:00 Document Registration [id number] 01/30/2009 09:57:00 Document Registration [id number] 12/10/2008 13:03:00 Document Registration [id number] 02/05/2018 12:00:00 02/05/2018 23:59:59 [facility] Outpatient JING QUINN APRN [facility]
--- NOTE | 2018-07-01 15:23 | ED Lower Extremity ---
General Chief Complaint: Lower Extremity Stated Complaint: FALL/R KNEE PAIN/L ANKLE SWELLING Nursing Triage Note: AMBULATED TO FAST TRACK WITH COMPLAINTS OF NON INJURED KNEE PAIN X2-4 WEEKS AND LEFT ANKLE PAIN AFTER A FALL. Nursing Sepsis Screen: No Definite Risk Source: patient Exam Limitations: no limitations History of Present Illness Date Seen by Provider: Jul 01, 2018 Time Seen by Provider: 14:45 Initial Comments Patient is a 37-year-old female who presents to the emergency room with complaints of right knee pain for 2-4 weeks but was exacerbated by a fall yesterday in which she also injured her left ankle. She reports that she missed the bottom step on a set of stairs thing her to twist her left ankle and cause increased pain to her right knee. She denies other injuries from the fall. Patient was able to ambulate to the room without difficulties. Onset: yesterday Pain/Injury Location: right knee; left ankle Method of Injury: fell Modifying Factors: Worse With Movement Allergies and Home Medications Allergies Coded Allergies: No Known Drug Allergies (Verified Allergy, Unknown, 02/03/09) Home Medications No Active Prescriptions or Reported Meds Patient Home Medication List Home Medication List Reviewed: Yes Review of Systems Constitutional: see HPI; No chills, No fever Musculoskeletal: see HPI, joint pain (right knee, left ankle) All Other Systems Reviewed Negative Unless Noted: Yes Past Ylgadbk-Tpppov-Ztpnol Hx Past Med/Social Hx: Reviewed Nursing Past Med/Soc Hx Patient Social History Alcohol Use: Denies Use Recreational Drug Use: No Smoking Status: Current Everyday Smoker Recent Foreign Travel: No Contact w/Someone Who Travel: No Recent Infectious Disease Expo: No Recent Hopitalizations: Yes (C-SECTIONS X2. T AND A AGE 14 YRS, PLANTARS WART, KIDNEY STONE THIS PREGNAN) Immunizations Up To Date Date of Influenza Vaccine: Sep 07, 2012 Past Medical History Surgeries: Yes (T AND A,C-SECTIOINS X3, PLANTAR WART REMOVAL) Respiratory: No Cardiac: No Neurological: No Reproductive Disorders: No Gastrointestinal: No Musculoskeletal: No Endocrine: No Psychosocial: Yes Blood Disorders: No Family Medical History Reviewed Nursing Family Hx Physical Exam Vital Signs Vital Signs - First Documented 07/01/18 14:45 Temp 98.0 Pulse 75 Resp 16 B/P (MAP) 161/90 (113) Pulse Ox 98 O2 Delivery Room Air Capillary Refill : Less Than 3 Seconds Height, Weight, BMI Height: 5'9.00" Weight: 294lbs. oz. 133.103045im; BMI Method:Stated General Appearance: WD/WN, no apparent distress Cardiovascular: normal peripheral pulses, regular rate, rhythm, no edema, no gallop, no JVD, no murmur Respiratory: chest non-tender, lungs clear, normal breath sounds, no respiratory distress, no accessory muscle use Knees: right knee normal inspection, right knee normal range of motion, right knee no evidence of injury; left knee soft tissue tenderness Ankles: left ankle normal inspection, left ankle normal range of motion, left ankle no evidence of injury, left ankle soft tissue tenderness Neurologic/Psychiatric: alert, normal mood/affect, oriented x 3 Skin: normal color, warm/dry No swelling noted to either joint. Progress/Results/Core Measures Results/Orders My Orders Orders - TOMAS VÁSQUEZ Ankle, Left, 3 Views (07/01/18 14:47) Knee, Right, 3 Views (07/01/18 14:47) Vital Signs/I&O 07/01/18 07/01/18 14:45 16:15 Temp 98.0 98.0 Pulse 75 75 Resp 16 16 B/P (MAP) 161/90 (113) 161/90 (113) Pulse Ox 98 98 O2 Delivery Room Air Blood Pressure Mean: 113 Progress Progress Note : Time: 16:00 Progress Note I have seen and evaluated the patient. She was informed of normal imaging studies. She declines need for pain medication. She was instructed to use ice to the sore areas and follow up with physician within one week for recheck. She agrees with plan of care and return precautions were given. Departure Impression Primary Impression: Contusion of ankle Additional Impression: Knee pain Disposition: 01 HOME, SELF-CARE Condition: Stable/Unchanged Departure-Patient Inst. Decision time for Depature: 16:05 Referrals: ANDREA MENDOZA DO (PCP) Primary Care Physician JING QUINN (Family) Primary Care Physician Patient Instructions: Knee Sprain (DC), Ankle Sprain (DC) Add. Discharge Instructions: You may use ibuprofen and Tylenol as directed by the bottle for pain. Wear the Elie bandage is that were given to the emergency room as needed for support and comfort. Ice to the sore areas a 20 minute intervals. Follow up with [facility] within 1 week for recheck. Return back to the emergency room for any worsening pain, worsening symptoms, or any other concerns as needed. All discharge instructions reviewed with patient and/or family. Voiced understanding. Scripts No Active Prescriptions or Reported Meds TOMAS VÁSQUEZ Jul 01, 2018 15:23
--- NOTE | 2018-07-01 15:42 | Diagnostic Imaging Report ---
INDICATION: Fell, ankle pain. EXAMINATION: Left ankle at 3:27 p.m. Three views were obtained. COMPARISON: There are no prior studies available for comparison. FINDINGS: There is no fracture, dislocation or acute bony abnormality evident. The ankle mortise is not widened and the talar dome is smooth. There is soft tissue edema about the ankle joint, particularly over the lateral malleolus. IMPRESSION: There is no evidence for an acute bony abnormality. Dictated by: Dictated on workstation # [id number]
--- NOTE | 2018-07-01 15:44 | Diagnostic Imaging Report ---
INDICATION: Injury, knee pain. EXAMINATION: Right knee at 3:25 p.m. Three views were obtained. COMPARISON: There are no prior studies available for comparison. FINDINGS: There is no fracture, dislocation or acute bony abnormality evident. There is mild narrowing of the medial compartment of the knee joint. The knee joint is otherwise well maintained. The soft tissues are unremarkable. IMPRESSION: There is no evidence for an acute bony abnormality. Dictated by: Dictated on workstation # [id number]
[2018-07-01 16:15] VITALS: BP 161/90
== END 2018-07-01 16:15 | disposition home or self-care (01) ==
LOC: EDUNIT# 13:49 → ER 13:50
DX: S90.01XA Contusion of right ankle, initial encounter (principal); M25.561 Pain in right knee; F17.200 Nicotine dependence, unspecified, uncomplicated; Z98.890 Other specified postprocedural states; W10.9XXA Fall (on) (from) unspecified stairs and steps, initial encounter; X50.1XXA Overexertion from prolonged static or awkward postures, initial encounter
CPT/HCPCS: 73562; 73610

== ENCOUNTER 2019-10-23 17:11 | Emergency (ER) | payer SELFPAY ==
[~2019-10-23] VITALS: Ht 172 cm; Wt 138.0 kg
--- NOTE | 2019-10-23 17:26 | ED Lower Extremity ---
General Stated Complaint: FALL,ANKLE PAIN Source: patient Exam Limitations: no limitations History of Present Illness Date Seen by Provider: Oct 23, 2019 Time Seen by Provider: 17:24 Initial Comments Pain to the right lateral ankle and foot after stepping down off a curb earlier today about 3 PM twisting the ankle. Onset: just prior to arrival Severity: moderate Pain/Injury Location: right foot, right ankle Method of Injury: twisted Modifying Factors: Worse With Movement Allergies and Home Medications Allergies Coded Allergies: No Known Drug Allergies (Verified Allergy, Unknown, 02/03/09) Home Medications No Active Prescriptions or Reported Meds Patient Home Medication List Home Medication List Reviewed: Yes Review of Systems Constitutional: see HPI EENTM: see HPI Respiratory: no symptoms reported Cardiovascular: no symptoms reported Genitourinary: no symptoms reported Musculoskeletal: no symptoms reported Skin: no symptoms reported Psychiatric/Neurological: No Symptoms Reported Past Nopskqa-Peyqip-Pyqxfv Hx Patient Social History Recent Foreign Travel: No Contact w/Someone Who Travel: No Recent Hopitalizations: Yes (C-SECTIONS X2. T AND A AGE 14 YRS, PLANTARS WART,KIDNEY STONE THIS PREGNAN) Immunizations Up To Date Date of Influenza Vaccine: Sep 07, 2012 Past Medical History Surgeries: Yes (T AND A,C-SECTIOINS X3, PLANTAR WART REMOVAL) Respiratory: No Cardiac: No Neurological: No Reproductive Disorders: No Gastrointestinal: No Musculoskeletal: No Endocrine: No Psychosocial: Yes Blood Disorders: No Physical Exam Vital Signs Vital Signs - First Documented 10/23/19 17:47 Temp 36.4 Pulse 114 Resp 14 B/P (MAP) 131/95 (107) Pulse Ox 98 O2 Delivery Room Air Capillary Refill : Height, Weight, BMI Height: 5'9.00" Weight: 294lbs. oz. 133.704717pa; BMI Method:Stated General Appearance: WD/WN, no apparent distress HEENT: PERRL/EOMI, normal ENT inspection Respiratory: no respiratory distress Hips: bilateral hip non-tender, bilateral hip normal inspection, bilateral hip normal range of motion Legs: bilateral leg non-tender, bilateral leg normal inspection, bilateral leg normal range of motion Knees: bilateral knee non-tender, bilateral knee normal inspection, bilateral knee normal range of motion Ankles: right ankle pain, right ankle soft tissue tenderness Feet: bilateral foot non-tender, bilateral foot normal inspection, bilateral foot normal range of motion; right foot pain, right foot soft tissue tenderness, right foot other (no visible swelling or erythema or ecchymosis to the lateral ankle foot at this time. She is tender to palpation however. Strong dorsalis pedis pulse.) Neurologic/Psychiatric: alert, normal mood/affect, oriented x 3 Skin: normal color, warm/dry Progress/Results/Core Measures Results/Orders My Orders Orders - MYLES CONTRERAS APRN Ankle, Right, 3 Views (10/23/19 17:23) Foot, Right, 3 View (10/23/19 17:23) Vital Signs/I&O 10/23/19 17:47 Temp 36.4 Pulse 114 Resp 14 B/P (MAP) 131/95 (107) Pulse Ox 98 O2 Delivery Room Air Departure Impression Primary Impression: Sprain and strain of ankle Disposition: 01 HOME, SELF-CARE Condition: Improved Departure-Patient Inst. Decision time for Depature: 17:58 Referrals: [facility] (PCP) Primary Care Physician JING QUINN (Family) Primary Care Physician Patient Instructions: Ankle Sprain (DC) Add. Discharge Instructions: 1. Tylenol and IV propofol for pain 2. Crutches as needed for pain. 3. Follow-up with your doctor next week for recheck. Scripts No Active Prescriptions or Reported Meds MYLES CONTRERAS APRN Oct 23, 2019 17:26
--- NOTE | 2019-10-23 17:44 | Diagnostic Imaging Report ---
INDICATION: Twisting injury with lateral pain. EXAMINATION: Three views of the right ankle. FINDINGS: No fracture, dislocation or acute articular incongruity. IMPRESSION: No acute appearing abnormality. Dictated by: Dictated on workstation # [id number]
--- NOTE | 2019-10-23 17:47 | Diagnostic Imaging Report ---
INDICATION: Twisting injury stepping off curb. Lateral pain. EXAMINATION: Three views of the right foot. FINDINGS: Base of the 5th metatarsal intact. The remaining metatarsals, as well as phalanges, are intact. The hind and midfoot appear unremarkable, aside from some midfoot osteoarthritis. IMPRESSION: No fracture or acute bony abnormality radiographically apparent. Dictated by: Dictated on workstation # [id number]
[2019-10-23 18:02] VITALS: BP 131/95
[2019-10-23] MEDS ORDERED: RX-TRAMADOL 50 MG (ULTRAM) TAB PPK#4 PO STA (18:15)
== END 2019-10-23 18:20 | disposition home or self-care (01) ==
LOC: EDUNIT# 17:11 → ER 17:12
DX: S93.401A Sprain of unspecified ligament of right ankle, initial encounter (principal); X50.1XXA Overexertion from prolonged static or awkward postures, initial encounter
CPT/HCPCS: 73610; 73630

== ENCOUNTER → 2019-12-27 | Outpatient (REF) ==
--- NOTE | 2019-12-27 16:11 | Diagnostic Imaging Report ---
INDICATION: Positive TB test. TIME OF EXAM: 03:48 p.m. FINDINGS: The heart size is normal. Lungs are clear. No infiltrates are seen. There are no findings to suggest tuberculosis. The pulmonary vascularity is normal. No effusion or pneumothorax is seen. IMPRESSION: No acute cardiopulmonary process is detected. Dictated by: Dictated on workstation # [id number]
== END | disposition home or self-care (01) ==
LOC: OCC 15:32
PROVIDERS: ATTEND Nurse Practitioner Family
CPT/HCPCS: 71046

== ENCOUNTER → 2020-07-07 | Outpatient (CLI) | payer SELFPAY ==
[2020-07-07 16:47] LABS: ALANINE AMINOTRANSFERASE 20 U/L (0-55)
== END ==
LOC: OCC 16:17
DX: Z01.89 Encounter for other specified special examinations (principal)
CPT/HCPCS: 36415; 84450; 84460